=== PATIENT | female | born 1960 | race Caucasian/White ===

== ENCOUNTER 2018-06-24 14:34 | Emergency (ER) | payer MEDICAID ==
[~2018-06-24] VITALS: Ht 167.6 cm; Wt 75.0 kg
[2018-06-24] MEDS ORDERED: PERMETHRIN 5% 60 GM CREAM TP ONE (15:15)
[2018-06-24 17:08] VITALS: BP 132/80
== END 2018-06-24 18:38 | disposition home or self-care (01) ==
LOC: EMS 14:38
DX: B85.0 Pediculosis due to Pediculus humanus capitis (principal)